=== PATIENT | female | born 1990 | race Caucasian/White ===

== ENCOUNTER 2021-05-17 13:00 | Emergency (ER) | payer MEDICAID, OTHER ==
[~2021-05-17] VITALS: Ht 165.1 cm; Wt 92.8 kg
[~2021-05-17 13:00] MED LIST: ADVI200T PO; ALBU17IN INH; LORA-243 PO; NICOLOZ MT; PRED20TAB PO; QVAR80AE10 INH; ZITH250T PO
[2021-05-17] MEDS ORDERED: methocarbamoL 750 MG TAB PO ONE (15:30)
[2021-05-17] MEDS ORDERED: LIDOCAINE 5% (LIDODERM) PATCH TD ONE (15:30)
[2021-05-17] MEDS ORDERED: KETOROLAC 60MG 2ML VIAL IM ONE (15:30)
[2021-05-17] MEDS ORDERED: METH-1164 PO (16:59)
[2021-05-17 17:17] VITALS: BP 144/74
[2021-05-17] MEDS ORDERED: **NOTE PATIENT COMMENT** MISC XX SCH (21:00)
== END 2021-05-17 17:32 | disposition home or self-care (01) ==
LOC: M ED 13:00
DX: M54.50 Low back pain, unspecified (principal); M51.46 Schmorl's nodes, lumbar region; J45.909 Unspecified asthma, uncomplicated; F17.200 Nicotine dependence, unspecified, uncomplicated
CPT/HCPCS: 72110; 96372; 99283; J1885

== ENCOUNTER → 2021-08-18 | Outpatient (REF) ==
[~2021-08-18] MED LIST changes: +METH-1164 PO
== END ==
LOC: M LAB 15:38
PROVIDERS: ATTEND Nurse Practitioner Adult Health
DX: Z02.1 Encounter for pre-employment examination (principal)

== ENCOUNTER 2022-01-17 18:29 | Emergency (ER) | payer OTHER ==
[~2022-01-17] VITALS: Ht 165.1 cm; Wt 84.0 kg
[2022-01-17] MEDS ORDERED: MELO7.5T35 PO (19:01)
[2022-01-17 23:09] VITALS: BP 107/60
== END 2022-01-18 00:15 | disposition left against medical advice (07) ==
LOC: M ED 18:29
DX: Z53.21 Procedure and treatment not carried out due to patient leaving prior to being seen by health care provider (principal)

== ENCOUNTER → 2022-10-29 | Outpatient (REF) ==
[~2022-10-29] MED LIST changes: +MELO7.5T35 PO
== END ==
LOC: M EMP 11:07
PROVIDERS: ATTEND Family Medicine
DX: Z11.52 Encounter for screening for COVID-19 (principal)

== ENCOUNTER 2022-12-28 08:04 | Emergency (ER) | payer OTHER ==
[~2022-12-28] VITALS: Ht 165.1 cm; Wt 73.5 kg
[2022-12-28] MEDS ORDERED: methylPREDNISolone 125MG 2ML VIAL IV ONE (08:35)
[2022-12-28 08:53] LABS: BASO # 0.1 10^3/uL (0.0-0.2); BASO % 0.4 % (0.0-1.0); EOS # 0.6 10^3/uL (0.0-0.5); EOS % 3.1 % (0.0-3.0); HEMATOCRIT 46.2 % (36.0-47.0); LYMPH # 2.2 10^3/uL (1.5-5.0); LYMPH % 11.7 % (24.0-44.0); MEAN CORPUSCULAR HEMOGLOBIN 30.7 pg (27.0-33.0); MEAN CORPUSCULAR HGB CONC 34.6 g/dl (32.0-36.5); MEAN CORPUSCULAR VOLUME 88.7 fl (80.0-96.0); MONO % 5.2 % (2.0-8.0); NEUTROPHILS # 14.9 10^3/uL (1.5-8.5); NEUTROPHILS % 79.2 % (36.0-66.0); PLATELET COUNT, AUTOMATED 289 10^3/uL (150-450); RED BLOOD COUNT 5.21 10^6/uL (4.00-5.40); WHITE BLOOD COUNT 18.9 10^3/uL (4.0-10.0)
[2022-12-28] MEDS: IPRATROPIUM 0.5MG/ALBUTEROL 2.5MG INH SOL UD 3ML (DUONEB) NEB SCH ×3 (08:55→09:28)
[2022-12-28 09:19] LABS: BLOOD UREA NITROGEN 16 MG/DL (9-23); CALCIUM LEVEL 9.2 MG/DL (8.5-10.1); CARBON DIOXIDE LEVEL 22 MMOL/L (20-31); CHLORIDE LEVEL 112 MMOL/L (98-107); CREATININE FOR GFR 0.84 MG/DL (0.55-1.30); GLOMERULAR FILTRATION RATE > 60.0 (>60); GLUCOSE, FASTING 94 MG/DL (60-100); POTASSIUM SERUM 4.1 MMOL/L (3.5-5.1); SODIUM LEVEL 143 MMOL/L (136-145)
[2022-12-28 09:23] LABS: RSV AMPLIFICATION NEGATIVE (NEGATIVE)
[2022-12-28 09:23] LABS: HCG, SERUM QUALITATIVE NEGATIVE (NEGATIVE)
[2022-12-28] MEDS ORDERED: AMOX875T2 PO (10:24)
[2022-12-28] MEDS ORDERED: PRED20TA PO (10:24)
[2022-12-28] MEDS ORDERED: VENTAER INH (10:24)
[2022-12-28 10:31] VITALS: BP 130/68; TEMP 98.2; O2SAT 94
== END 2022-12-28 10:39 | disposition home or self-care (01) ==
LOC: M ED 08:04
DX: J20.9 Acute bronchitis, unspecified (principal); J45.901 Unspecified asthma with (acute) exacerbation; D72.829 Elevated white blood cell count, unspecified; K21.9 Gastro-esophageal reflux disease without esophagitis; F32.A Depression, unspecified; F17.200 Nicotine dependence, unspecified, uncomplicated; Z79.52 Long term (current) use of systemic steroids; Z79.2 Long term (current) use of antibiotics
CPT/HCPCS: 71046; 80048; 84703; 85025; 87631; 94640; 94760; 96374; 99284; J2930

== ENCOUNTER 2023-03-24 13:37 | Emergency (ER) | payer MEDICAID, MEDICARE, OTHER ==
[~2023-03-24] VITALS: Ht 165.1 cm; Wt 72.7 kg
[~2023-03-24 13:37] MED LIST changes: +AMOX875T2 PO; +PRED20TA PO; +VENTAER INH
[2023-03-24 14:32] LABS: BASO # 0.1 10^3/uL (0.0-0.2); BASO % 0.6 % (0.0-1.0); EOS # 0.4 10^3/uL (0.0-0.5); EOS % 3.9 % (0.0-3.0); HEMATOCRIT 43.3 % (36.0-47.0); HEMOGLOBIN 14.7 g/dl (12.0-15.5); LYMPH # 1.8 10^3/uL (1.5-5.0); LYMPH % 16.4 % (24.0-44.0); MEAN CORPUSCULAR HEMOGLOBIN 31.1 pg (27.0-33.0); MEAN CORPUSCULAR HGB CONC 33.9 g/dl (32.0-36.5); MEAN CORPUSCULAR VOLUME 91.7 fl (80.0-96.0); MONO # 0.5 10^3/uL (0.0-0.8); NEUTROPHILS % 73.8 % (36.0-66.0); PLATELET COUNT, AUTOMATED 224 10^3/uL (150-450); RED BLOOD COUNT 4.72 10^6/uL (4.00-5.40); WHITE BLOOD COUNT 10.9 10^3/uL (4.0-10.0)
[2023-03-24 15:02] LABS: ALBUMIN 3.6 G/DL (3.2-5.2); ALKALINE PHOSPHATASE 43 U/L (46-116); ALT/SGPT 25 U/L (7.0-40); AST/SGOT 15 U/L (<34); BILIRUBIN,DIRECT 0.2 MG/DL (<0.4); BILIRUBIN,TOTAL 0.7 MG/DL (0.3-1.2); BLOOD UREA NITROGEN 17 MG/DL (9-23); CALCIUM LEVEL 8.8 MG/DL (8.5-10.1); CARBON DIOXIDE LEVEL 28 MMOL/L (20-31); CHLORIDE LEVEL 111 MMOL/L (98-107); CREATININE FOR GFR 0.81 MG/DL (0.55-1.30); GLOMERULAR FILTRATION RATE > 60.0 (>60); GLUCOSE, FASTING 90 MG/DL (60-100); POTASSIUM SERUM 4.1 MMOL/L (3.5-5.1); SODIUM LEVEL 142 MMOL/L (136-145); TOTAL PROTEIN 6.2 G/DL (5.7-8.2)
[2023-03-24] MEDS: PERCOCET 5MG/325MG TAB PO ONE (17:25)
[2023-03-24] MEDS: AMOXICILLIN 500 MG CAP PO ONE (17:48)
[2023-03-24] MEDS ORDERED: ISOVUE-370 76% 100ML VIAL As Ordered ONE (17:50)
[2023-03-24 18:15] VITALS: BP 106/71; O2SAT 97
[2023-03-24] MEDS ORDERED: AMOX500T PO (18:41)
[2023-03-24] MEDS ORDERED: PRED20TA PO (18:41)
[2023-03-24] MEDS ORDERED: VENTAER INH (18:41)
[2023-03-24] MEDS ORDERED: HYDR-3713 PO (18:41)
[2023-03-24 18:49] VITALS: TEMP 98.1
== END 2023-03-24 19:00 | disposition home or self-care (01) ==
LOC: EDBD 13:37 → M ED 13:37
DX: S20.211A Contusion of right front wall of thorax, initial encounter (principal); J18.9 Pneumonia, unspecified organism; V49.40XA Driver injured in collision with unspecified motor vehicles in traffic accident, initial encounter; J45.909 Unspecified asthma, uncomplicated; M54.50 Low back pain, unspecified; F32.A Depression, unspecified; K21.9 Gastro-esophageal reflux disease without esophagitis; F17.200 Nicotine dependence, unspecified, uncomplicated; F12.10 Cannabis abuse, uncomplicated; Z79.52 Long term (current) use of systemic steroids; Z79.2 Long term (current) use of antibiotics; Z79.1 Long term (current) use of non-steroidal anti-inflammatories (NSAID)
CPT/HCPCS: 36415; 71045; 71260; 80048; 80076; 85025; 93041; 94760; 99285; Q9967

== ENCOUNTER → 2023-05-11 | Outpatient (REF) ==
[~2023-05-11] MED LIST changes: +AMOX500T PO; +HYDR-3713 PO
== END ==
LOC: M EMP 15:47
PROVIDERS: ATTEND Family Medicine
DX: Z01.89 Encounter for other specified special examinations (principal)

== ENCOUNTER → 2023-10-13 | Outpatient (REF) | LOC: M EMP 11:14 | PROVIDERS: ATTEND Family Medicine | DX: Z11.52 Encounter for screening for COVID-19 (principal) ==

== ENCOUNTER → 2023-11-10 | Outpatient (REF) ==
[~2023-11-10] MED LIST changes: -NICOLOZ MT; +NICOLOZ4 MT
== END ==
LOC: M EMP 08:25
PROVIDERS: ATTEND Family Medicine
DX: Z11.52 Encounter for screening for COVID-19 (principal)

== ENCOUNTER → 2023-11-14 | Outpatient (REF) | LOC: M EMP 10:44 | PROVIDERS: ATTEND Family Medicine | DX: R09.89 Other specified symptoms and signs involving the circulatory and respiratory systems (principal) ==

== ENCOUNTER → 2024-02-14 | Outpatient (REF) | LOC: M EMP 09:13 | PROVIDERS: ATTEND Family Medicine | DX: Z11.52 Encounter for screening for COVID-19 (principal) ==

== ENCOUNTER 2024-09-18 02:31 | Emergency (ER) | payer MEDICAID, MEDICARE, OTHER, SELFPAY ==
[2024-09-18] MEDS: LIDOCAINE 2% MDV 20 ML VIAL SC ONE (02:51)
[2024-09-18 03:22] VITALS: BP 130/80; TEMP 98.3; O2SAT 99
== END 2024-09-18 03:25 | disposition home or self-care (01) ==
LOC: M ED 02:31
DX: S60.351A Superficial foreign body of right thumb, initial encounter (principal); Y92.89 Other specified places as the place of occurrence of the external cause; Y93.89 Activity, other specified; Y99.9 Unspecified external cause status

== ENCOUNTER → 2025-01-21 | Outpatient (REF) | LOC: M EMP 15:28 | PROVIDERS: ATTEND Family Medicine | DX: Z11.52 Encounter for screening for COVID-19 (principal) ==